=== PATIENT | male | born 1990 | race Two or more races ===

== ENCOUNTER 2022-01-22 05:28 | Emergency (ER) | payer MEDICAID ==
[~2022-01-22] VITALS: Ht 177.8 cm; Wt 91.0 kg
[2022-01-22] MEDS ORDERED: KETOROLAC 60MG/2ML VIAL IM ONE (06:00)
[2022-01-22 06:01] VITALS: BP 122/72
[2022-01-22] MEDS ORDERED: CYCLOBENZAPRINE 10MG TABLET PO ONE (06:15)
[2022-01-22] MEDS ORDERED: ACET-2708 MT (08:45)
[2022-01-22] MEDS ORDERED: CYCL10TA7 MT (08:45)
== END 2022-01-22 09:51 | disposition home or self-care (01) ==
LOC: ER 05:28
DX: M54.9 Dorsalgia, unspecified (principal); M25.561 Pain in right knee; Z98.890 Other specified postprocedural states
CPT/HCPCS: 72100; 73560; 73590; 96372; 99284; J1885